=== PATIENT | female | born 1975 | race Caucasian/White ===

== ENCOUNTER 2017-06-26 14:59 | Inpatient (IN) | payer OTHER ==
[~2017-06-26] VITALS: Ht 154.9 cm; Wt 103.4 kg
--- NOTE | ~2017-06-26 | S ---
[facility] [place] [address] SURGICAL PATH RPT PROCEDURE Name: LIBAN BO Room #: 410-P ADM IN M.R.#: [id number] Admission: 06/26/17 Date of : 73 Discharge: Report #: [id number] Path Case #: [id number] PATHOLOGY REPORT COLLECTION DATE: 06/27/2017 RECEIVED DATE: 06/27/2017 SUBMITTING PHYS: Dr. Karina Rodgers OTHER PHYS: Dr. Kp Santos, III SPECIMEN(S) RECEIVED: A.Duodenum B.Gastric bx C.Proximal gastric bx * * * * * * * * * * * * FINAL DIAGNOSIS: A. Small bowel mucosa, duodenum, endoscopic biopsy: - No significant diagnostic abnormalities present. - Negative for villous blunting or increase in intraepithelial lymphocytes. B. Gastric mucosa, gastric rule out H. pylori, endoscopic biopsy: - Mild chronic active gastritis. - Negative for intestinal metaplasia or atrophy. - Negative for Helicobacter pylori (please see comment). C. Gastric mucosa, proximal gastric, endoscopic biopsy: - Moderate chronic active gastritis. - Negative for intestinal metaplasia or atrophy. - Negative for Helicobacter pylori. COMMENT: B: Well controlled Helicobacter pylori immunohistochemical stain performed on block B-negative. C: Well controlled Helicobacter pylori immunohistochemical stain performed on block C-negative. An intensive search for Helicobacter pylori-like organisms is negative. Absence of such organisms does not entirely exclude the possibility and may be due to sampling or prior treatment for the same. Other possible etiologies may include chemical gastritis, autoimmune gastritis, gastritis associated with inflammatory bowel disease. Please correlate with clinical, endoscopic, and microbiological studies if clinically indicated. (IUV:mgr; 06/28/2017) PATHOLOGIST: Meron Gray M.D. REPORT ELECTRONICALLY SIGNED BY: Meron Gray M.D. DATE/TIME: 06/28/2017 13:[address] [address] SURGICAL PATH RPT PROCEDURE Name: LIBAN BO Room #: 410-P [facility] IN [facility]#: [id number] Admission: 06/26/17 Date of : 73 Discharge: Report #: [id number] Path Case #: [id number] * * * * * * * * * * * * GROSS PATHOLOGY: A. Received in formalin labeled "Liban Bo, duodenal biopsy rule out celiac," is a 0.3 x 0.3 x 0.2 cm portion of pink-valenzuela soft tissue. The specimen is submitted entirely in cassette A1. B. Received in formalin labeled "Liban Bo, gastric biopsy rule out H pylori" is a 0.4 x 0.3 x 0.2 cm portion of pink-valenzuela soft tissue. The specimen is submitted entirely in cassette B1. C. Received in formalin labeled "Liban Bo, proximal gastric biopsy" and further labeled on the requisition as "rule out H. pylori and autoimmune gastritis," is a 0.4 x 0.3 x 0.2 cm portion of pink-valenzuela soft tissue. The specimen is submitted entirely in cassette C1. ([facility] [place]; 06/27/2017) CLINICAL HISTORY: Nausea, vomiting, diarrhea, gastritis. INITIAL CPT CODE(S): A; 00796 B; 23184, 41393 C; 27671, 38888 Professional services performed by [facility] at [facility] [address], [place] [address] Technical services performed by [facility] at [address] [place] [address], [facility] [address] [address]. [facility] [address] [place] [address] PHONE: [phone] DIRECTOR: Phi Almonte M.D. * * * END OF REPORT * * *
--- NOTE | ~2017-06-26 | HC ---
[facility] [place] [address] CONSULTATION Name: LIBAN DIXON Room #: [facility]- ADM IN M.R.#: [id number] Admission: 06/26/17 Attend Phys: Gregorio Butler MD Discharge: Date of : 73 Report #: [id number] THIS REPORT FOR: //name// CC: Kp Butler MD DATE OF SERVICE: 06/27/[address] Kp Ring and Dr. Gregorio Butler. CHIEF COMPLAINT: This is a very pleasant 41-year-old female who I am asked to evaluate for possible etiologies of nausea, vomiting, diarrhea and an episode of hematochezia. The patient states that these symptoms have been going on for several years. She thought initially, this was a recurrence of her previous pancreatitis, but her pancreatic enzymes are within normal limits. She started experiencing crampy lower abdominal pain along with nausea and vomiting 3-4 times a day. On Saturday night, it did awaken her from sleep. She has had a cholecystectomy and says that she has been experiencing increasing gastroesophageal reflux for the last 6 weeks or so. She also describes an episode of hematochezia in the ER at [facility] prior to coming to [facility]. She denies any hematemesis or melena. She says she has gained 20 pounds in the last 2 months. Her appetite has not changed and she believes that she has a history of anemia as a child. PAST MEDICAL HISTORY: Significant for palpitations, moderate obesity. She has had a history of urolithiasis that passed spontaneously in 2013. She also has a history of pyelonephritis. PAST SURGICAL HISTORY: Significant only for cholecystectomy. ALLERGIES: MORPHINE THAT CAUSED DIAPHRAGMATIC SPASMS. MEDICATIONS: At the present time none. SOCIAL HISTORY: She does not smoke. She quit smoking in 10/2016. She drinks occasional wine, but not excessively. FAMILY HISTORY: Significant for colon polyps in her mother. There is no history of colon cancer. She had one cousin that she thinks had colitis. There is no history of Crohn's disease or ulcerative colitis in her family. REVIEW OF SYSTEMS: She denies any dysphagia or odynophagia. She does have gastroesophageal reflux, it has been worse over the last 6 weeks. She has no history of a hiatal hernia or peptic ulcer disease. Her weight has gone up 20 [facility] [address] [place] [address] CONSULTATION Name: LIBAN DIXON Room #: 410-P [facility] IN [facility].#: [id number] Admission: 06/26/17 Attend Phys: Gregorio Butler MD Discharge: Date of : 73 Report #: [id number] pounds as mentioned. Her appetite, though she thinks has decreased now. She admits to nausea, vomiting. She has had diarrhea, denies constipation. She has hematochezia, but denies melena or hematemesis. She has had a cholecystectomy. She has a history of pancreatitis in the past. Lipase is normal at the time of this admission. She complains of pain across the upper abdomen and she has been having some diarrhea as well. PHYSICAL EXAMINATION: GENERAL: Reveals a well-developed, well-nourished, obese 41-year-old white female, who is in some distress because of her nausea. She is awake, alert, oriented x 4 and cooperative and pleasant to converse with. HEENT: She is normocephalic, atraumatic and anicteric. HEART: Rate and rhythm are regular with a normal S1 and S2. LUNGS: Clear bilaterally. ABDOMEN: Soft, rotund. Bowel sounds are present in all 4 quadrants. There is no palpable organomegaly or mass. There is tenderness all across the upper abdomen at this time. She said it started in her lower abdomen, but moved upward. There is no rebound or guarding. EXTREMITIES: Warm and dry. No peripheral cyanosis, clubbing or edema. NEUROLOGIC: She appears grossly intact without lateralizing signs. SIGNIFICANT LABORATORY DATA: Her CMP is within normal limits except for mildly elevated chloride of 109, calcium 7.7 and albumin is 3.0, ALT is a little low at 21. CBC shows a hemoglobin of 11.4 with normal indices and RDW, platelets are normal. WBCs are 7.7. Ultrasound of the abdomen that was completed revealed no abnormalities to explain the patient's abdominal pain. She has diffuse hepatic steatosis. She has a stable left renal cortical cyst size 2.3 cm, unchanged from 2006. IMPRESSION: 1. Nausea, vomiting, diarrhea, hematochezia at [facility], transferred to [place]. 2. Gastroesophageal reflux. 3. History of pancreatitis. 4. Status post cholecystectomy. 5. History of palpitations. 6. Urolithiasis spontaneously passed historically. 7. History of pyelonephritis. 8. Obesity. 9. Fatty liver, likely nonalcoholic fatty liver disease. Liver enzymes are normal. 10. Family history of colon polyps in her mother. 11. Normocytic normochromic anemia. 12. Stable left renal cortical cyst size 2.3 cm. RECOMMENDATIONS: To proceed with EGD today. We will keep her n.p.o. for now, [facility] [address] [place] [address] CONSULTATION Name: LIBAN DIXON Room #: 410-P [facility] IN .R.#: [id number] Admission: 06/26/17 Attend Phys: Gregorio Butler MD Discharge: Date of : 73 Report #: [id number] continue proton pump inhibitors. We will guaiac her stools, check a fasting lipid profile and we will check stools for culture and sensitivity, ova and parasites, C. difficile by PCR and WBCs and occult blood. Thank you very much once again for allowing me to participate in her care, Dr. Butler. <ELECTRONICALLY SIGNED> By: Karina Rodgers DO 06/27/17 2101 1142 1716 Karina Rodgers DO /nt
--- NOTE | ~2017-06-26 | S ---
[facility] [place] [address] SURGICAL PATH RPT PROCEDURE Name: LIBAN BO Room #: 410-P ADM IN M.R.#: [id number] Admission: 06/26/17 Date of : 73 Discharge: Report #: [id number] Path Case #: [id number] PATHOLOGY REPORT COLLECTION DATE: 07/01/2017 RECEIVED DATE: 07/01/2017 SUBMITTING PHYS: Dr. Duc Painter OTHER PHYS: Brandee Canseco Dr., III SPECIMEN(S) RECEIVED: A.Random colon biopsies * * * * * * * * * * * * FINAL DIAGNOSIS: Large intestine mucosa, random colon, endoscopic biopsy: - Mild active colitis. - Negative for dysplasia or malignancy. COMMENT: Examination shows marked active surface epithelial inflammation, active cryptitis, and a moderately cellular lamina propria. Crypt abscess formation is not identified. There are no granulomata or viral inclusions or parasitic organisms present. Thickening of collagen layer or increase in intraepithelial lymphocytes is not identified as well. Findings are suggestive of mild focal active colitis, and the differential diagnosis includes acute diverticulitis, early inflammatory bowel disease, as well as medication-induced colitis amongst others. Please correlate clinically and follow-up as indicated. (IUV:mgr; 07/02/2017) PATHOLOGIST: Meron Gray M.D. REPORT ELECTRONICALLY SIGNED BY: Meron Gray M.D. DATE/TIME: 07/02/2017 14:46 * * * * * * * * * * * * GROSS PATHOLOGY: Received in formalin labeled "Liban Bo, random colon biopsies," are seven segments of valenzuela soft tissue measuring 1.2 x 1.2 x 0.2 cm in aggregate dimensions and ranging from 0.2 to 0.9 cm in maximum dimension. The specimen is submitted entirely in cassette A1. ([facility]; 07/01/2017) CLINICAL HISTORY: [facility] [address] [place] [address] SURGICAL PATH RPT PROCEDURE Name: LIBAN BO Room #: 410-P ADM IN M.R.#: [id number] Admission: 06/26/17 Date of : 73 Discharge: Report #: [id number] Path Case #: [id number] Abdominal pain, diarrhea, change in bowel habits, rectal bleeding, diverticulosis, internal hemorrhoids, R/O microscopic colitis INITIAL CPT CODE(S): A; 51327 Professional services performed by [facility] at [address], [place] [address] Technical services performed by [facility] at [address] [place] [address], [facility] [address], [place] [address]. [facility] [address] [place] [address] PHONE: [phone] DIRECTOR: Phi Almonte M.D. * * * END OF REPORT * * *
[2017-06-27 04:24] VITALS: BP 106/76
[2017-06-27 06:18] LABS: HEMATOCRIT 34.5 % (37.0-47.0); HEMOGLOBIN 11.4 gm/dL (12.0-15.0); MCH 29.1 pg (26.0-34.0); MCHC 32.9 g/dL (28.0-37.0); MCV 88.3 fL (80.0-100.0); RBC 3.91 mil/uL (4.20-5.00); RDW 14.1 % (10.5-14.5); WBC 7.9 thou/uL (4.0-11.0)
[2017-06-27 06:32] LABS: CALCIUM 7.7 mg/dL (8.5-10.1); CREATININE 0.8 mg/dL (0.6-1.0); POTASSIUM 3.9 mmol/L (3.5-5.1); TOTAL BILIRUBIN 0.3 mg/dL (<0.1-1.0); TOTAL PROTEIN 6.6 g/dL (6.4-8.2)
[2017-06-27 08:06] VITALS: BP 118/70
[2017-06-27 16:13] VITALS: BP 128/85
[2017-06-27 19:35] VITALS: BP 131/95
[2017-06-28 04:00] VITALS: BP 103/61
[2017-06-28 05:56] LABS: ABSOLUTE NEUTROPHILS 4.5 thou/uL (1.4-8.2); BASOPHILS 0.4 % (0.0-2.0); EOSINOPHILS 5.3 % (0.0-3.0); HEMATOCRIT 30.4 % (37.0-47.0); HEMOGLOBIN 10.4 gm/dL (12.0-15.0); LYMPHOCYTES 23.5 % (24.0-44.0); MCHC 34.2 g/dL (28.0-37.0); MCV 87.9 fL (80.0-100.0); MONOCYTES 6.2 % (1.0-8.0); PLATELET COUNT 197 thou/uL (150-400); POLYS 64.6 % (36.0-66.0); RBC 3.46 mil/uL (4.20-5.00); RDW 13.9 % (10.5-14.5)
[2017-06-28 06:03] LABS: CREATININE 0.7 mg/dL (0.6-1.0); POTASSIUM 3.7 mmol/L (3.5-5.1)
[2017-06-28 06:08] LABS: CHOLESTEROL 116 mg/dL (<200); HDL CHOLESTEROL 26 mg/dL (>40); LDL CHOLESTEROL 72 mg/dL (<100); TC:HDL 4.5 Ratio (Not establshd); TRIGLYCERIDE 91 mg/dL (<150); VLDL 18 mg/dL (<40)
[2017-06-28 07:51] VITALS: BP 100/70
[2017-06-28 20:00] VITALS: BP 130/85
[2017-06-29 04:00] VITALS: BP 108/68
[2017-06-29 06:51] LABS: % SATURATION 18 % (20-39); IRON 47 ug/dL (50-170); TIBC 268 ug/dL (250-450)
[2017-06-29 07:18] LABS: FOLIC ACID 20.7 ng/mL (8.6-58.9); TSH 4.975 uIU/mL (0.358-3.740)
[2017-06-29 08:50] VITALS: BP 109/85
[2017-06-29 16:00] VITALS: BP 132/91
[2017-06-29 19:50] VITALS: BP 145/95
[2017-06-30 05:23] VITALS: BP 125/81
[2017-06-30 08:37] VITALS: BP 132/77
[2017-06-30 16:00] VITALS: BP 112/80
[2017-06-30 20:00] VITALS: BP 131/91
[2017-06-30 22:05] LABS: 25-HYDROXY TOTAL 5.3 ng/mL (30.0-100.0)
[2017-07-01 04:00] VITALS: BP 128/82
[2017-07-01 08:36] VITALS: BP 127/91
[2017-07-01 16:59] VITALS: BP 120/88
[2017-07-01 19:10] VITALS: BP 146/86
[2017-07-02 04:27] VITALS: BP 115/82
[2017-07-02 08:18] VITALS: BP 115/84
[2017-07-02 09:51] VITALS: BP 115/84
[2017-07-02 14:14] LABS: METHYL MALONIC ACID 76 nmol/L (0-378)
[2017-07-02 18:41] VITALS: BP 123/78
[2017-07-03 05:27] VITALS: BP 110/80
[2017-07-03 07:00] VITALS: BP 117/78
[2017-07-03 11:38] VITALS: BP 111/62
[2017-07-03] MEDS ORDERED: AMITRIPTYLINE H10 M1 PO (13:30)
[2017-07-03] MEDS ORDERED: TRAMADOL 50 MG50 MG PO (13:30)
[2017-07-03] MEDS ORDERED: PREVALITE PACKET4 GM PO (13:30)
[2017-07-03] MEDS ORDERED: BENTYL 10 MG CA10 M1 PO (13:30)
[2017-07-03] MEDS ORDERED: DELZICOL400 M1 PO (13:30)
[2017-07-03] MEDS ORDERED: ERGOCALCIF50000 UNIT PO (14:00)
[2017-07-03 14:12] VITALS: BP 111/62
[2017-07-03 15:15] VITALS: BP 122/88
== END 2017-07-03 16:02 | disposition home or self-care (01) | DRG 392 ==
LOC: 4N 14:59 → ENTRNSPT 07-03 15:45 → EDTRNSPTSTS 07-03 15:47 → 4N 07-03 16:02
PROVIDERS: Hospitalist; Internal Medicine Gastroenterology; Nurse Practitioner Family
DX: K52.9 Noninfective gastroenteritis and colitis, unspecified (principal); Z68.41 Body mass index [BMI] 40.0-44.9, adult; E66.09 Other obesity due to excess calories; K21.9 Gastro-esophageal reflux disease without esophagitis; K76.0 Fatty (change of) liver, not elsewhere classified; D64.9 Anemia, unspecified; N28.1 Cyst of kidney, acquired; G43.909 Migraine, unspecified, not intractable, without status migrainosus; F32.9 Major depressive disorder, single episode, unspecified; G47.00 Insomnia, unspecified; N20.0 Calculus of kidney; K29.70 Gastritis, unspecified, without bleeding; K57.30 Diverticulosis of large intestine without perforation or abscess without bleeding; K64.8 Other hemorrhoids; Z23 Encounter for immunization; Z90.49 Acquired absence of other specified parts of digestive tract; Z87.891 Personal history of nicotine dependence; Z82.49 Family history of ischemic heart disease and other diseases of the circulatory system; Z81.8 Family history of other mental and behavioral disorders; Z83.71 Family history of colonic polyps
CPT/HCPCS: 10790; 62110; 62900; 70005